=== PATIENT | female | born 1990 | race American Indian/Alaskan Native ===

== ENCOUNTER 2016-05-11 09:18 | Emergency (ER) | payer OTHER ==
[2016-05-11 10:04] LABS: Basophils % (Auto) 0.8 % (0.0-1.8); Eosinophils % (Auto) 4.6 % (0.0-4.3); Hematocrit 41.1 % (30.3-42.9); Hemoglobin 13.8 gm/dl (10.1-14.3); Mean Corpuscular HGB Conc 34 % (30-34); Mean Corpuscular Hemoglobin 31 pg (28-32); Mean Corpuscular Volume 93 fl (79-97); Platelet Count 326 K/mm3 (140-440); Red Blood Count 4.43 M/mm3 (3.65-5.03); Red Cell Distribution Width 14.3 % (13.2-15.2); White Blood Count 4.8 K/mm3 (4.5-11.0)
[2016-05-11 11:19] LABS: Bacteria,Urine 1+ /HPF (Negative); Bilirubin,Urine NEG (Negative); Blood,Urine LG (Negative); Ketones,Urine NEG (Negative); Leukocyte Esterase,Urine NEG (Negative); Mucus,Urine 1+ /HPF; Nitrite,Urine NEG (Negative); Protein,Urine <15 mg/dL mg/dL (Negative); RBC,Urine < 1.0 /HPF (0.0-6.0); Urobilinogen,Urine < 2.0 mg/dL (<2.0)
--- NOTE | 2016-05-11 11:33 | Emergency Department Report ---
HPI - General Chief Complaint: Vaginal Bleeding Time Seen by Provider: 05/11/16 11:09 - HPI HPI: Chief complaint: Pelvic pain and vaginal bleeding HPI: Patient is 25-year-old female who states she's been having vaginal bleeding off and on for the last 2 weeks. Sometimes heavy and sometimes is very light. Patient also has been complaining of lower abdominal cramping. 2 days ago patient had several episodes of vomiting but has had no diarrhea. Patient states she has been told in the past she has ovarian cysts. Patient has never had abnormal vaginal bleeding. Patient states that she is currently not having intercourse with males. No vaginal discharge or fever. Mode of arrival: [private car] Source: [Patient Began: 2 weeks Duration: See above Context: See above Quality: Cramping Severity: 7 out of 10 Improved with: Nothing Worsened with: Nothing Associated signs and symptoms: See above ED Past Medical Hx - Past Medical History Previous Medical History?: No - Surgical History Past Surgical History?: No - Social History Smoking Status: Current Every Day Smoker Substance Use Type: Alcohol - Medications Home Medications: Home Medications Medication Instructions Recorded Confirmed Last Taken Type medroxyPROGESTERone ACETATE 10 mg PO QDAY #10 tablet 05/11/16 Unknown Rx [Provera] ED Review of Systems ROS: Stated complaint: ABD PAIN Other details as noted in HPI ROS Constitutional: No fever ENT: No uri symptoms Cardiovascular: No chest pain Respiratory: No sob or cough GI: No diarrhea : No dysuria frequency or urgency, Skin: No rash Neuro: No focal weakness or numbness Psych: No depression Serge/lymph: No edema Physical Exam - Physical Exam Vital Signs: Vital Signs 05/11/16 05/11/16 09:20 11:03 Temperature 98.7 F Pulse Rate 108 H 88 Respiratory 20 18 Rate Blood Pressure 155/101 Blood Pressure 130/89 [Left] O2 Sat by Pulse 99 100 Oximetry Physical Exam: GENERAL: The patient is well-developed well-nourished . HEENT: Normocephalic. Atraumatic. Extraocular motions are intact. Patient has moist mucous membranes. NECK: Supple. No meningitic signs are noted. There is no adenopathy noted. CHEST/LUNGS: Clear to auscultation. There is no respiratory distress noted. HEART/CARDIOVASCULAR: Regular. There is no tachycardia. There is no gallop rub or murmur. ABDOMEN: Abdomen is soft, nontender. Patient has increased bowel sounds. There is no abdominal distention. SKIN: There is no rash. There is no edema. There is no diaphoresis. NEURO: The patient is awake, alert, and oriented. The patient is cooperative. The patient has no focal neurologic deficits. The patient has normal speech. MUSCULOSKELETAL: There is no tenderness or deformity. There is no limitation range of motion. There is no evidence of acute injury. ED Course Vital Signs 05/11/16 05/11/16 09:20 11:03 Temperature 98.7 F Pulse Rate 108 H 88 Respiratory 20 18 Rate Blood Pressure 155/101 Blood Pressure 130/89 [Left] O2 Sat by Pulse 99 100 Oximetry ED Medical Decision Making - Lab Data Result diagrams: 05/11/16 09:35 Laboratory Tests 05/11/16 05/11/16 10:50 10:50 Ur Leukocyte Esterase Neg Urine WBC (Auto) 3.0 Urine RBC (Auto) < 1.0 U Epithel Cells (Auto) 12.0 Urine Bacteria (Auto) 1+ Urine HCG, Qual Negative - Radiology Data Radiology results: report reviewed (pelvic ultrasound shows no acute process.) Critical care attestation.: If time is entered above; I have spent that time in minutes in the direct care of this critically ill patient, excluding procedure time. ED Disposition Clinical Impression: Dysfunctional uterine bleeding Disposition: DISCHARGED TO HOME OR SELFCARE Is pt being admited?: No Does the pt Need Aspirin: No Condition: Stable Instructions: Dysfunctional Uterine Bleeding (ED) Prescriptions: medroxyPROGESTERone ACETATE [Provera] 10 mg PO QDAY #10 tablet Referrals: CINTHIA FIGUEROA MD [Staff Physician] - 7-10 days Time of Disposition: 14:06
--- NOTE | 2016-05-11 13:54 | Ultrasound Report ---
Pelvic ultrasound: Endovaginal and transabdominal imaging demonstrates an anteverted uterus measuring 3 x 5.1 x 6 cm. The myometrium is homogeneous. A small amount of fluid is present in the endometrium. No endometrial mass identified. The endometrial thickness is approximately 2.5 mm. The left ovary 3 cm and the right 3.1 cm in maximum dimension. Both contain numerous small follicles. No free fluid identified. Impression: Nonspecific small volume of endometrial fluid.
[2016-05-11 14:17] VITALS: BP 126/93
== END 2016-05-11 14:16 | disposition home or self-care (01) ==
LOC: ED 09:18
DX: N93.8 Other specified abnormal uterine and vaginal bleeding (principal); F17.200 Nicotine dependence, unspecified, uncomplicated
CPT/HCPCS: 36415; 76830; 76856; 81001; 81025; 85025; 99284